=== PATIENT | male | born 1945 | race Caucasian/White ===

== ENCOUNTER → 2016-12-25 | Outpatient (REF) | payer MEDICARE, BC ==
[~2016-12-25] MED LIST: /WARF25TA PO; ACET50TA PO; ASPI81TA4 PO; METO50TA2 PO; PERCOCET PO; ULTR50TA PO; [UNRECOGNIZED DRUG - CODE] TOP
[2016-12-25 14:12] LABS: PERCENT SATURATION 24.2 % (19.7-50.0)
== END ==
LOC: M LAB REF 13:30
PROVIDERS: ATTEND Internal Medicine Medical Oncology
DX: E83.119 Hemochromatosis, unspecified (principal)

== ENCOUNTER → 2017-01-06 | Outpatient (REF) | payer MEDICARE, BC | LOC: M LAB REF 10:01 | PROVIDERS: ATTEND Internal Medicine Medical Oncology | DX: E83.119 Hemochromatosis, unspecified (principal) ==